=== PATIENT | male | born 1970 | race Caucasian/White ===

== ENCOUNTER → 2022-01-09 10:14 | Outpatient (CLI) | payer BC, OTHER, SELFPAY ==
--- NOTE | 2022-01-09 10:19 | XR_ITS ---
FINAL REPORT CLINICAL HISTORY: CERVICALGIS. RIGHT UPPER EXTREMITY NUMBNESS FINDINGS: CERVICAL SPINE Five views were obtained. There is no acute fracture. There is no malalignment. There are mild degenerative changes with osteophytes. There is a chronic calcification posterior to C4-C5 vertebrae. There is no significant neural foraminal narrowing. IMPRESSION: Mild degenerative change with no acute bony abnormality and no significant neural foraminal narrowing. Reviewed, Interpreted and Dictated by Vishal Echeverria III, MD Transcribed by Heather Maier Authenticated and [facility]
== END ==
PROVIDERS: PCP Nurse Practitioner Family; Visit Provider Nurse Practitioner Family
DX: M54.2 Cervicalgia (principal); R20.0 Anesthesia of skin
CPT/HCPCS: 72050

== ENCOUNTER → 2022-01-17 08:11 | Outpatient (CLI) | payer BC, OTHER, SELFPAY ==
--- NOTE | 2022-01-17 08:13 | MR_ITS ---
FINAL REPORT CLINICAL HISTORY: CERVICALGIA, RIGHT SHOULDER PAIN WITH NUMBNESS IN RIGHT HAND AND ARM. SYMPTOMS FOR YEARS. FINDINGS: Multi planar MR imaging was obtained of the cervical spine. There is abnormal decreased signal throughout the cervical discs. There is mild reversal of the normal cervical lordosis. The vertebrae are of normal height. There is no malalignment. A hemangioma is noted in the T3 vertebrae. The cervical cord demonstrates normal signal and configuration. C2-C3: There is no evidence of significant disc bulge or protrusion. There is no significant facet hypertrophy. C3-C4: There is no evidence of significant disc bulge or protrusion. There is no significant facet hypertrophy. C4-C5: There is a mild disc bulge with mild bilateral neural foraminal narrowing. C5-C6: There is a mild diffuse disc bulge with endplate hypertrophy eccentric to the left. There is mild compromise on the left side of the spinal canal and left neural foramen. C6-C7: There is a right paracentral disc protrusion with moderate compromise of the right side of the spinal canal. This is well seen on image 44 of series 10 and image 8 of series 2. C7-T1: There is no evidence of significant disc bulge or protrusion. There is no significant facet hypertrophy. IMPRESSION: Right paracentral disc protrusion at C6-7 with moderate compromise of the right side of the spinal canal. Reviewed, Interpreted and Dictated by Edson Boykin MD Transcribed by Heather Maier Authenticated and [facility]
== END ==
PROVIDERS: PCP Nurse Practitioner Family; Visit Provider Nurse Practitioner Family
DX: M54.2 Cervicalgia (principal); R20.0 Anesthesia of skin
CPT/HCPCS: 72141; 76376

== ENCOUNTER → 2022-03-09 08:42 | Outpatient (CLI) | payer BC, OTHER, SELFPAY ==
--- NOTE | 2022-03-09 08:47 | XR_ITS ---
FINAL REPORT CLINICAL HISTORY: KNEE PAIN AND SWELLING FINDINGS: Right knee Three views were obtained. There is no acute fracture or dislocation. There are small osteophytes along the undersurface of the patella. No soft tissue abnormality is identified. IMPRESSION: No acute process. Reviewed, Interpreted and Dictated by Edson Boykin MD Transcribed by Maya Brush Authenticated and [facility]
== END ==
PROVIDERS: PCP Nurse Practitioner Family; Visit Provider Nurse Practitioner Family
DX: M25.561 Pain in right knee (principal); M25.461 Effusion, right knee
CPT/HCPCS: 73562

== ENCOUNTER → 2022-03-22 08:48 | Outpatient (CLI) | payer BC, SELFPAY ==
--- NOTE | 2022-03-22 08:52 | MR_ITS ---
FINAL REPORT CLINICAL HISTORY: POST. KNEE PAIN. SWELLING OF RIGHT KNEE JOINT FINDINGS: Multiplanar MR imaging of the right knee was performed without contrast. The body of the medial meniscus is abnormally small, favor postoperative change. There is abnormal signal and morphology of the posterior horn of the medial meniscus worrisome for a tear. The lateral meniscus is intact. There is an anterior cruciate ligament cyst versus mucinous degeneration. The posterior cruciate ligament is intact. The medial collateral ligament and lateral ligamentous complex are intact. The patellar and quadriceps tendons are intact. There is no evidence of fracture. No focal abnormality is identified of the articular cartilage. A small joint effusion is seen. The musculature is intact. There is a lobular fluid collection posterior to the distal femur measuring up to 4 cm which likely represents a ganglion cyst. IMPRESSION: Abnormally small body of the medial meniscus, favor postoperative change. Findings worrisome for a tear of the posterior horn of the medial meniscus. ACL cyst versus mucinous degeneration. Likely 4 cm ganglion cyst posterior to the distal femur. Reviewed, Interpreted and Dictated by Vishal Echeverria III, MD Transcribed by Kandi Gonsalez Authenticated and [facility]
== END ==
PROVIDERS: PCP Nurse Practitioner Family; Visit Provider Nurse Practitioner Family
DX: M25.561 Pain in right knee (principal); M25.461 Effusion, right knee
CPT/HCPCS: 73721

== ENCOUNTER 2023-07-15 09:21 | Emergency (ER) | payer BC, SELFPAY ==
[2023-07-15 09:35] VITALS: BP 156/86; PULSE 74; RESP 21; TEMP 36.7; O2SAT 96; BMI 38.9
--- NOTE | 2023-07-15 10:11 | ED_ITS ---
Discharge Plan Disposition Patient Disposition: Home, Self-Care Condition: Good Prescriptions Prescriptions: New azithromycin [Zithromax Z-Sid] 250 mg tablet See Rx Instructions .ROUTE .COMPLEX 5 Days Qty: 6 0RF Rx Instructions: For 250 mg dose pack: take 500 mg today (day 1), then 250 mg for 4 days (days 2-5) benzonatate 100 mg capsule 100 mg PO TID PRN (Reason: cough) Qty: 20 0RF No Action losartan-hydrochlorothiazide 100-25 mg tablet 1 tab PO DAILY Referrals Follow up/Referrals: Luisito Rock MD [Primary Care Provider] - See instructions Activity Restrictions/Add. Instructions Additional Instructions/Restrictions: *Monitor Temp, Over the counter Motrin or Tylenol as directed/as needed Tylenol every 4 hours and Motrin every 6 hours (as long as your family doctor has told you that you can take it) for fever or pain. and straight to ER if unable to lower temp less than 101.0 after medication given *Warm salt water gargles may help to soothe the throat *Throat Lozenges? *Warm fluids like tea with honey may help to soothe the throat? *Sleep elevated *Humidifier/Vaporizer Your throat swab was sent for culture. Those results are typically sent to your primary care. Be sure to follow up in 2-3 days with your family doct or/primary care physician if no improvement so they can review those result and treat if necessary. If you don?t have a primary care doctor, I recommend you get one but in the mean time, you will have to return to a walk in clinic Follow up IMMEDIATELY for new or worsening symptoms or no Noticeable improvement over the next 48-72 hours. 911 for difficulty breathing or swallowing Clinical Impressions Clinical Impression: Pharyngitis Instructions Patient Instructions: Sore Throat, Cough Discharge ED Provider[place] Mary Shaikh [facility] [place] General Stated complaint: sore throat Mode of Arrival: Ambulatory Source of Information: Patient Limitations: No Limitations Time Seen by Provider: 07/15/23 10:11 Description of Symptoms (Recalled from Triage Doc. by RN): PATIENT C/O SORE THROAT, COUGH, AND CONGESTION THAT STARTED SUNDAY MORNING HEENT Symptoms (Recalled from RN notes): Yes Resp Symptoms (Recalled from RN notes): Yes Skin Symptoms (Recalled from RN notes): No MS Symptoms (Recalled from RN notes): No Functional Status (Recalled from RN notes): WNL History of Present Illness Provider Complaint: Patient states that he started Feeling bad on with sore throat, cough and nasal congestion States that he has continued to feel worse so today when he was still having symptoms he came in to get checked Related Data Home Medications Medication Instructions Recorded Confirmed losartan 100 1 tab PO DAILY 07/15/23 07/15/23 mg-hydrochlorothiazide 25 mg tablet Previous Rx's Medication Instructions Recorded azithromycin 250 mg tablet See Rx Instructions PO .COMPLEX 5 07/15/23 (Zithromax Z-Sid) days #6 tabs benzonatate 100 mg capsule 100 mg PO TID PRN cough #20 caps 07/15/23 Allergies Allergy/AdvReac Type Severity Reaction Status Date / Time No Known Allergies Allergy Verified 02/10/18 12:21 Worker's Comp Is this a Worker's Comp case?: No [facility] Disclaimer: The information contained in this section may have been updated after the patient was seen, as this information can be updated by other users. Medical History (Updated 07/15/23 @ 10:15 by Mary Shaikh APRN) Hypertension Social History Smoking Status: Never smoker alcohol intake: never current occupational status: employed Travel in the last 8 weeks: None ROS Obtained: Yes All systems reviewed & no additional complaints except as documented and Yes Systems reviewed as appropriate & no additional complaints except as documented Constitutional Constitutional: Reports system reviewed and no additional complaints, except as documented and Reports as per HPI ENT Ears, Nose, Mouth, and Throat: Reports system reviewed and no additional complaints, except as documented, Reports as per HPI, Reports nasal congestion and Reports sore throat Cardiovascular Cardiovascular: Reports system reviewed and no additional complaints, except as documented and Reports as per HPI Respiratory Respiratory: Reports system reviewed and no additional complaints, except as documented, Reports as per HPI and Reports cough Gastrointestinal Gastrointestingal: Reports system reviewed and no additional complaints, except as documented and as per HPI Physical Exam General General appearance: alert and in no apparent distress ENT ENT exam: Present mucous membranes moist Expanded ENT Exam Throat exam: Present tonsillar erythema Respiratory Respiratory exam: Present normal lung sounds bilaterally; Absent respiratory distress or wheezes Cardiovascular Cardiovascular exam: Present regular rate, normal rhythm and normal heart sounds Abdominal Exam Abdominal exam: Present soft and normal bowel sounds; Absent distention or tenderness Neurological Exam Neurological exam: Present alert, oriented X3 and normal gait Medical Decision Making Michael Inquiry Pt receiving controlled substance: No Michael was queried for this patient: No Vital Signs: 07/15/23 09:35 Temperature 98.1 F Temperature Source Oral Pulse Rate [Left Brachial] 74 Respiratory Rate 21 Blood Pressure [Left Arm] 156/86 H Blood Pressure Mean [Left Arm] 109 Blood Pressure Source [Left Arm] Automatic Cuff Blood Pressure Position [Left Arm] Sitting 02 Sat by Pulse Oximetry 96 Oxygen Delivery Method Room Air Lab Data Lab results reviewed: Yes I reviewed the patient's lab results.
[2023-07-15 10:12] LABS: UTC Strep Screen (Rapid) Negative (Negative)
[2023-07-15 10:19] VITALS: BP 156/86; PULSE 74; RESP 21; TEMP 36.7; O2SAT 96
== END 2023-07-15 10:20 | disposition home or self-care (01) ==
PROVIDERS: Emergency Provider Nurse Practitioner; PCP Family Medicine
DX: J02.9 Acute pharyngitis, unspecified (principal); R05.9 Cough, unspecified; R09.81 Nasal congestion; I10 Essential (primary) hypertension
CPT/HCPCS: 87880; 99204; 99212; G0463